=== PATIENT | female | born 1995 ===

== ENCOUNTER 2021-08-13 16:36 | Emergency (ER) | payer SELFPAY ==
--- NOTE | 2021-08-13 18:12 | EDM.PDOC ---
ED HPI GENERAL MEDICAL PROBLEM - General Chief Complaint: General Stated Complaint: covid symptoms Time Seen by Provider: 08/13/21 17:45 Source of Information: Reports: Patient History Limitations: Reports: No Limitations - History of Present Illness INITIAL COMMENTS - FREE TEXT/NARRATIVE: 45-year-old female presents to the ED complaining of sinus congestion and generalized fatigue over the last 7 days that came on acutely. Patient was concerned that she may have Covid. Patient notes that she had an alteration in taste and smell earlier in the week though she still has both. Patient states that her symptoms have been mild, first day that she noticed that she felt ill she slept for 24 hours straight. Patient states that she has momentary intermittent chest discomfort, but no history of cardiac personally or in family. Besides sinus congestion and fatigue, patient has no complaints at this time. Patient denies chest pain, shortness of breath, syncope/near syncope, nausea vomiting, constipation diarrhea, cough, sore throat, difficulty swallowing, swollen red joints, rash, headache or trauma. ED ROS GENERAL - Review of Systems Review Of Systems: Comprehensive ROS is negative, except as noted in HPI. ED EXAM, GENERAL - Physical Exam Exam: See Below Free Text/Narrative:: ABC intact. No apparent distress. No obvious trauma. Speaking in full sentences. Alert and oriented x3, GCS 456. Exam Limited By: No Limitations General Appearance: Alert, WD/WN, No Apparent Distress Eye Exam: Bilateral Eye: EOMI, PERRL Ears: Normal External Exam, Hearing Grossly Normal Nose: Normal Inspection, Normal Mucosa, No Blood. No: Nasal Drainage, Clear Rhinorrhea Throat/Mouth: Normal Inspection, Normal Lips, Normal Teeth, Normal Gums, Normal Oropharynx, Normal Voice, No Airway Compromise Head: Atraumatic, Normocephalic Neck: Normal Inspection, Supple, Non-Tender, Full Range of Motion. No: Lymphadenopathy (R), Lymphadenopathy (L) Respiratory/Chest: No Respiratory Distress, Normal Breath Sounds, No Accessory Muscle Use, Chest Non-Tender, Wheezing (1 minor wheeze heard once during auscultation subsequently cleared) Cardiovascular: Normal Peripheral Pulses, Regular Rate, Rhythm, No Edema, No Gallop, No JVD, No Murmur, No Rub GI/Abdominal: Soft, Non-Tender, No Mass Neurological: Alert, Oriented, Normal Cognition Psychiatric: Normal Affect, Normal Mood Skin Exam: Warm, Dry, Intact, Normal Color, No Rash Lymphatic: No Adenopathy Course - Orders/Labs/Meds Labs: Laboratory Tests 08/13/21 Range/Units 16:58 SARS-CoV-2 RNA (PANKAJ) Positive H (NEGATIVE) Departure - Departure Time of Disposition: 18:15 Disposition: Home, Self-Care 01 Condition: Good Clinical Impression: COVID-19 - Discharge Information *PRESCRIPTION DRUG MONITORING PROGRAM REVIEWED*: No *COPY OF PRESCRIPTION DRUG MONITORING REPORT IN PATIENT GALDINO: No Instructions: COVID-19 Frequently Asked Questions - Assessment/Plan Assessment:: 30-year-old female who presents to the ED for evaluation for generalized fatigue and sinus congestion. Patient has had no known Covid exposure and a rapid test was positive. There are no signs at this point of other serious bacterial infection such as otitis media, retropharyngeal abscess, epiglottitis, peritonsillar abscess, strep pharyngitis, pneumonia, sinusitis, meningitis or bacteremia. Given clear lung sounds, no fever, no hypoxia and no respiratory distress I do not feel patient needs a chest x-ray at this point as the probabil ity of pneumonia is very unlikely. There is no concerning gastrointestinal symptoms at this point and no signs of dehydration. Close follow-up with primary care physician is indicated. Return to ED if fever greater than 103, protracted vomiting, confusion. Plan: Rapid Covid test, ABC, history, exam, patient education/shared decision-making, supportive outpatient care, patient recommended continue to quarantine for the next 7 days, Tylenol as needed for discomfort. -Patient and/or surgical device sales representative understood and agreed to treatment plan. -All questions were answered to the patient's satisfaction. -Patient is discharged in stable condition. Patient to return to the ED if symptoms increase she becomes short of breath, confusion, lethargy, temperature greater than 103.. Follow-up with primary care provider after quarantine period.
== END 2021-08-13 18:10 | disposition home or self-care (01) ==
LOC: LB.ED 16:36
DX: U07.1 COVID-19 (principal)
CPT/HCPCS: 99283; U0002